=== PATIENT | female | born 1995 | race Caucasian/White ===

== ENCOUNTER 2022-05-26 12:00 | Emergency (ER) | payer OTHER, MEDICAID, SELFPAY ==
[2022-05-26 12:04] VITALS: BP 146/85; PULSE 81; RESP 16; TEMP 36.4; O2SAT 98; BMI 32.4
--- NOTE | 2022-05-26 12:07 | DI.RAD.S_ITS ---
PROCEDURE: XR FINGER LT MIN 2V INDICATIONS: slammed in door TECHNIQUE: AP hand, 2 views of the 3rd finger(s) acquired. COMPARISON: None. FINDINGS: Bones: No fractures or dislocations. No suspicious bony lesions. Soft tissues: No suspicious soft tissue calcifications. IMPRESSION: No gross acute 3rd finger fracture or dislocation. Dictated by: Be Heredia M.D. on 05/26/2022 at 12:25 Approved by: Be Heredia M.D. on 05/26/2022 at 12:26
--- NOTE | 2022-05-26 12:10 | ED_ITS ---
HPI - Extremity Injury (Upper) <ADRI Wu - Last Filed: 05/26/22 12:43> General Chief Complaint: Extremity Injury, Upper Stated Complaint: Poss broken finger- slammed in door Time Seen by Provider: 05/26/22 12:08 Source: patient Mode of arrival: Ambulatory History of Present Illness HPI narrative: This is a 27-year-old female who presents to the emergency department complaining of left 3rd digit injury after she slammed her finger in a door last night. She complains of pain, swelling and some numbness to the distal aspect of her finger. She denies taking any medication for pain today. States she has an allergy to sulfa, Tylenol, hydrocodone. Declines any need for pain medication at this time. States that the door shut over the distal in her 3rd digit she is right-handed, denies any mobility deficit, reports that she still has sensation in her fingertip but it is dull in comparison to her other on injured fingers. She denies any open wound, denies any clicking or popping or joint getting stuck. Related Data Previous Rx's Medication Instructions Recorded triamcinolone acetonide 0.1 % 1 applictn topical BID #30 grams 09/30/18 topical ointment Allergies Allergy/AdvReac Type Severity Reaction Status Date / Time Sulfa (Sulfonamide Allergy Unknown Verified 09/30/18 17:02 Antibiotics) [SULFA (SULFONAMIDE ANTIBIOTICS)] acetaminophen [From Vicodin] AdvReac Gastrointestinal Verified 05/26/22 12:06 Upset hydrocodone [From Vicodin] AdvReac Gastrointestinal Verified 05/26/22 12:06 Upset Review of Systems <ADRI Wu - Last Filed: 05/26/22 12:43> Review of Systems Narrative: General: denies fever, chills Head/Neck: denies headache, neck pain MSK: denies new joint pain, muscle weakness or swelling Skin: denies rash, itching or open wound Neurovascular: Endorses numbness at her 3rd distal fingertip and finger pain with swelling. Patient History <ADRI Wu - Last Filed: 05/26/22 12:43> Social History Smoking Status: Never smoker Smoking Status: Never smoker Exam <ADRI Wu - Last Filed: 05/26/22 12:43> Narrative Exam Narrative: Independently reviewed vitals signs and nursing notes. General: Awake, alert, no acute distress, interactive Head/Neck: Atraumatic, neck with normal range of motion MSK: Moves all extremities and fingers with full range of motion, neurovascularly intact, range of motion without deficit, D IP of the digit left hand with pain with movements, dull sensation in distal fingertip in comparison to other fingertips but sensation remains present, cap refill less than 2 seconds, no open wound Skin: Normal capillary refill, no rash Neuro: Normal speech and cognition, normal gait Initial Vital Signs Initial Vital Signs: Vital Signs Temperature 97.6 F 05/26/22 12:04 Pulse Rate 81 05/26/22 12:04 Respiratory Rate 16 05/26/22 12:04 Blood Pressure 146/85 H 05/26/22 12:04 Pulse Oximetry 98 05/26/22 12:04 Oxygen Delivery Method 05/26/22 12:04 <Alba Sepulveda DO - Last Filed: 05/30/22 07:56> Initial Vital Signs Initial Vital Signs: Vital Signs Temperature 97.6 F 05/26/22 12:04 Pulse Rate 81 05/26/22 12:04 Respiratory Rate 16 05/26/22 12:04 Blood Pressure 146/85 H 05/26/22 12:04 Pulse Oximetry 98 05/26/22 12:04 Oxygen Delivery Method 05/26/22 12:04 Procedures <ADRI Wu - Last Filed: 05/26/22 12:43> Orthopedic Splinting/Casting Injury #1: Side: left Upper Extremity Injury Location: finger Upper Extremity Immobilizer: finger (other) Additional Comments: Clamshell finger splint which covers distal interphalangeal joint of 3rd digit left hand, applied by RN, patient tolerated well Course <ADRI Wu - Last Filed: 05/26/22 12:43> Orders Ordered: ED Orders 05/26/22 12:07 XR finger LT min 2V Stat Vital Signs Vital signs: Vital Signs - 8 hr 05/26/22 12:04 Temperature 97.6 F Pulse Rate 81 Respiratory Rate 16 Blood Pressure 146/85 H Pulse Oximetry 98 Oxygen Delivery Method Room Air <Alba Sepulveda DO - Last Filed: 05/30/22 07:56> Orders Ordered: ED Orders 05/26/22 12:07 XR finger LT min 2V Stat Vital Signs Vital signs: Vital Signs - 8 hr 05/26/22 12:04 Temperature 97.6 F Pulse Rate 81 Respiratory Rate 16 Blood Pressure 146/85 H Pulse Oximetry 98 Oxygen Delivery Method Room Air MDM - Extremity Injury (Upper) <ADRI Wu - Last Filed: 05/26/22 12:43> Imaging Data Extremity x-ray #1: Radiologist's Impression: PROCEDURE:? XR FINGER LT MIN 2V ? INDICATIONS:? slammed in door ? TECHNIQUE:? AP hand, 2 views of the 3rd finger(s) acquired.? ? COMPARISON:? None. ? FINDINGS:? ? Bones:? No fractures or dislocations.? No suspicious bony lesions.? ? Soft tissues:? No suspicious soft tissue calcifications.? ? IMPRESSION:? No gross acute 3rd finger fracture or dislocation. ? ? Dictated by: Be Heredia M.D. on 05/26/2022 at 12:25 ? ? Approved by: Be Heredia M.D. on 05/26/2022 at 12:26 ? MDM Narrative Medical decision making narrative: This is a 27-year-old female presents to the emergency department complaining of a left 3rd digit injury after she slammed her finger in the car door last night and complains of dull sensation in her fingertips today. She denies taking any pain medication prior to arrival, denied any need for pain medication while she was here in the emergency department. Finger x-ray shows no gross acute 3rd finger fracture or dislocation. Her 3rd digit is neurovascularly intact, she is right-handed, cap refills brisk without any gross edema, open wound, or perfusion deficit. Her sensation is mildly dull in comparison to her other fingers, there is ecchymosis to this joint. Recommend she ice, rest, applied a clamp sterile finger splint over this joint and encourage patient to reduce overuse and take 2-3 days off of work as needed. 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 Given contact information for [facility] if this continues to her beyond 1-2 weeks or if she has any mobility or sensation deficit that is persistent. Patient is appropriate and amenable to discharge home. Vital signs are stable on repeat examination is unremarkable. Patient has been informed of results. Patient has been given strict return to ER precautions for any new or worsening symptoms. Patient understands to follow up closely with outpatient providers as instructed. Patient understands plan and agrees to discharge home. All questions and concerns answered at this time. Discharge Plan Departure Patient Disposition: Home Clinical Impression: Crushing injury of finger, left Instructions: DI for Finger Sprain Activity Restrictions/Additional Instructions: *You have been diagnosed with a crush injury of your left 3rd digit without fracture. If you have difficulty with range of motion either flexion or extension or if your joint get stuck in a position, please try ibuprofen or diclofenac gel/Voltaren gel, ice, use a Band-Aid or tape it across that joint to splint it for a couple days and follow-up with [facility]. Otherwise, please try those methods to reduce your pain, reduce frequent use of that finger to allow to heal. You may 2-3 days off of work as needed. I hope it feels better soon. *What to do: *Please continue to take your regular medications as directed. [ ] New medication prescriptions sent to your pharmacy: [ ] [ ] New medication written as a paper prescription [x ] No new medications given *Please follow up with your primary care provider in 2-3 days, call for an appointment. Let them know you were seen in the Emergency Department and that we asked that you be seen for follow-up. We will electronically transmit a record of today's note if your PCP is in our system *If you do not have a primary care provider please contact [phone] to establish care with one of [facility] primary care providers. *Return to Emergency Department if you should have any new, worsening or concerning symptoms, such as [fever greater than 101F, chills, worsening pain, persistent vomiting or other bothersome symptoms] Prescriptions: No Action triamcinolone acetonide 0.1 % ointment 1 applictn TOP BID Qty: 30 1RF Referrals: [facility] [Provider Group] Visit Report Forms: Patient Portal/API <Alba Sepulveda DO - Last Filed: 05/30/22 07:56> Cosign ED Attending Cosignature Attestation: I was immediately available in the department for consultation. Documentation has been reviewed. I agree with assessment and plan.
[2022-05-26 12:25] VITALS: BP 124/87; PULSE 86; RESP 18; O2SAT 98
--- NOTE | 2022-05-26 12:31 | PC.NURSE ---
Pt reports 2/10 intermittent throbbing pain to left middle finger after slamming it in a door last night. Pt reports intermittent throbbing and numbness to digit. Pt has normal range of motion. Slight bruising noted at the base of the finger. No open wound noted. Pt reports taking ibuprofen with some relief.
== END 2022-05-26 12:38 | disposition home or self-care (01) ==
PROVIDERS: Emergency Provider Nurse Practitioner Critical Care Medicine
DX: S67.193A Crushing injury of left middle finger, initial encounter (principal); W23.0XXA Caught, crushed, jammed, or pinched between moving objects, initial encounter
CPT/HCPCS: 29130; 73140; 99281; 99283

== ENCOUNTER → 2022-11-04 16:10 | Outpatient (CLI) | payer OTHER, MEDICAID, SELFPAY ==
[2022-11-04 17:58] LABS: Add Manual Diff / Slide Review NO; Basophils Absolute Auto 0 /uL (0-100); Basophils Percent Auto 0.6 % (0-2); Eosinophils Absolute Auto 100 /uL (0-450); Eosinophils Percent Auto 1.5 % (2-4); Hematocrit 38.8 % (36-46); Hemoglobin 13.3 g/dL (12.0-16.0); Lymphocytes Absolute Auto 2000 /uL (1100-4500); Lymphocytes Percent Auto 29.2 % (25-40); Mean Corpuscular HGB Conc 34.3 % (30-36); Mean Corpuscular Hemoglobin 29.1 PG (26-34); Mean Corpuscular Volume 84.7 fL (80-100); Monocytes Absolute Auto 400 /uL (0-900); Monocytes Percent Auto 5.5 % (3-14); Neutrophils Absolute Auto 4400 /uL (1500-7000); Neutrophils Percent Auto 63.2 % (50-75); Platelet Count 309 X10^3/uL (150-400); Red Blood Cell Count 4.58 X10^6/uL (4.0-5.2); Red Cell Distribution Width 13.4 % (11.6-14.8); White Blood Cell Count 6.9 X10^3/uL (4.5-11.0)
[2022-11-04 18:17] LABS: Alanine Aminotransferase 27 IU/L (<35); Albumin 4.4 g/dL (3.5-5.0); Albumin Globulin Ratio 1.3 (1.0-2.8); Alkaline Phosphatase 46 U/L (38-126); Aspartate Aminotransferase 26 IU/L (14-36); Bilirubin Total 0.7 mg/dL (0.2-1.3); Blood Urea Nitrogen 12 mg/dL (7-17); Calcium 9.2 mg/dL (8.4-10.2); Carbon Dioxide 28 mmol/L (22-32); Chloride 99 mmol/L (98-107); Estimated Glomerular Filt Rate > 60 mL/min (>60); Globulin 3.3 g/dL (1.7-4.1); Glucose 82 mg/dL (70-100); HEMOLYSIS < 15 (0-50); Potassium 3.8 mmol/L (3.4-5.1); Sodium 137 mmol/L (137-145); Total Protein 7.7 g/dL (6.3-8.2)
[2022-11-04 18:30] LABS: Erythrocyte Sedimentation Rate 8 MM/HR (0-20)
[2022-11-04 18:32] LABS: Vitamin D 25 Hydroxy (D3) 15.3 ng/mL (30.0-100.0)
[2022-11-04 18:47] LABS: TSH w/ Reflex to FT4 0.61 uIU/mL (0.47-4.68)
[2022-11-04 19:23] LABS: Folate 14.5 ng/mL (2.76-20.0); Vitamin B12 286 pg/mL (239-931)
[2022-11-10 15:21] LABS: ANA Screen, IFA Negative (.)
== END ==
PROVIDERS: PCP Family Medicine; Referring Provider Family Medicine; Visit Provider Family Medicine
DX: R20.2 Paresthesia of skin (principal); R68.2 Dry mouth, unspecified; H04.123 Dry eye syndrome of bilateral lacrimal glands; Z84.0 Family history of diseases of the skin and subcutaneous tissue; L20.84 Intrinsic (allergic) eczema; Z13.220 Encounter for screening for lipoid disorders; Z79.899 Other long term (current) drug therapy
CPT/HCPCS: 36415; 80053; 82306; 82607; 82746; 84443; 85025; 85651; 86038

== ENCOUNTER → 2022-12-10 11:06 | Outpatient (CLI) | payer OTHER, MEDICAID, SELFPAY ==
[2022-12-10 12:51] LABS: Cholesterol 214 mg/dL (140-199); HDL Cholesterol 61 mg/dL (40-60); LDL Cholesterol Calculated 137 mg/dL (<100); Triglycerides 82 mg/dL (35-150)
== END ==
PROVIDERS: PCP Family Medicine; Referring Provider Family Medicine; Visit Provider Family Medicine
DX: Z13.220 Encounter for screening for lipoid disorders (principal); E55.9 Vitamin D deficiency, unspecified; Z86.59 Personal history of other mental and behavioral disorders
CPT/HCPCS: 36415; 80061; 82306

== ENCOUNTER → 2024-05-17 19:04 | Outpatient (CLI) | payer OTHER, MEDICAID, SELFPAY ==
--- NOTE | 2024-05-17 19:07 | DI.RAD.S_ITS ---
PROCEDURE: XR CHEST 2V INDICATIONS: COUGH TECHNIQUE: 2 views of the chest were acquired. COMPARISON: None. FINDINGS: Surgical changes and devices: None. Lungs and pleura: Lungs are clear. No pleural effusions or pneumothorax. Mediastinum: Mediastinal contours are normal. Heart size is normal. Bones and chest wall: No suspicious bony abnormalities. Soft tissues appear unremarkable. IMPRESSION: No acute pulmonary process. Dictated by: Mickie Chowdhury M.D. on 05/18/2024 at 16:42 Approved by: Mickie Chowdhury M.D. on 05/18/2024 at 16:42
== END ==
PROVIDERS: PCP Nurse Practitioner Family; Referring Provider Nurse Practitioner Family; Visit Provider Nurse Practitioner Family
DX: R05.9 Cough, unspecified (principal)
CPT/HCPCS: 71046